=== PATIENT | male | born 1965 | race Hispanic/Latino ===

== ENCOUNTER 2018-01-17 07:38 | Emergency (ER) | payer BC ==
[~2018-01-17 07:38] MED LIST: ACET1TAB25 PO; LISI10TA7 PO; METO-391 PO; OXYM-30 NS; ROSU10TA PO
== END 2018-01-17 08:26 | disposition home or self-care (01) ==
LOC: EDH 07:38
DX: K04.7 Periapical abscess without sinus (principal); F50.9 Eating disorder, unspecified; I10 Essential (primary) hypertension; E78.5 Hyperlipidemia, unspecified; Z98.890 Other specified postprocedural states

== ENCOUNTER 2021-03-26 13:41 | Emergency (ER) | payer BC, OTHER ==
[~2021-03-26] VITALS: Ht 172.7 cm; Wt 122.5 kg
[~2021-03-26 13:41] MED LIST changes: +LISI10TA24 PO; -LISI10TA7 PO; -ROSU10TA PO; +ROSU10TA22 PO
[2021-03-26 13:47] VITALS: BP 150/94
== END 2021-03-26 17:06 | disposition left against medical advice (07) ==
LOC: EDH 13:41
DX: M54.9 Dorsalgia, unspecified (principal); Z53.21 Procedure and treatment not carried out due to patient leaving prior to being seen by health care provider

== ENCOUNTER 2021-08-06 08:08 | Emergency (ER) | payer OTHER ==
[~2021-08-06] VITALS: Ht 172.7 cm; Wt 127.0 kg
[~2021-08-06 08:08] MED LIST changes: +ACET-2079 PO; -ACET1TAB25 PO
[2021-08-06] MEDS ORDERED: DICL50TA9 PO (08:58)
[2021-08-06] MEDS ORDERED: KETOROLAC 60 MG VIAL (30MG/ML) IM ONE (09:00)
[2021-08-06 09:11] VITALS: BP 129/78
== END 2021-08-06 09:10 | disposition home or self-care (01) ==
LOC: EDH 08:08
DX: M54.32 Sciatica, left side (principal); I10 Essential (primary) hypertension; Z79.1 Long term (current) use of non-steroidal anti-inflammatories (NSAID)
CPT/HCPCS: 96372; 99283; J1885

== ENCOUNTER 2022-06-15 19:21 | Emergency (ER) | payer OTHER ==
[~2022-06-15] VITALS: Ht 175.3 cm; Wt 129.3 kg
[~2022-06-15 19:21] MED LIST changes: +DICL50TA9 PO
[2022-06-15 19:24] VITALS: BP 125/69
== END 2022-06-15 20:29 | disposition left against medical advice (07) ==
LOC: EDH 19:21
DX: R05.9 Cough, unspecified (principal); R09.81 Nasal congestion; M79.10 Myalgia, unspecified site; R50.9 Fever, unspecified; Z53.21 Procedure and treatment not carried out due to patient leaving prior to being seen by health care provider
CPT/HCPCS: 99281